=== PATIENT | female | born 1975 | race Caucasian/White ===

== ENCOUNTER → 2019-12-16 | Outpatient (CLI) | payer SELFPAY ==
[~2019-12-16] MED LIST: ALBU90OI INH; HYDACE5 PO; IBUP800 PO; LORA10; MULVITMINF; PENVK250 PO; PENVK500 PO; PROM25 PO; RXPENVK250 PO; SULTRIDS PO
[2019-12-17 18:07] LABS: HPV 16 Negative (Negative); HPV 18 Negative (Negative); HPV OTHER HR TYPES Positive (Negative)
== END ==
LOC: LAB SHORT 12:18 → LAB 12:18
PROVIDERS: Registered Nurse Community Health
DX: Z12.4 Encounter for screening for malignant neoplasm of cervix (principal)
CPT/HCPCS: 87624; 87625; G0123

== ENCOUNTER → 2019-12-23 | Outpatient (CLI) | payer SELFPAY | LOC: PLD 15:03 → LAB SHORT 15:03 | DX: N87.1 Moderate cervical dysplasia (principal) | CPT/HCPCS: 88305 ==

== ENCOUNTER 2020-04-03 06:15 | Day surgery (SDC) | payer OTHER ==
[~2020-04-03] VITALS: Ht 170.2 cm; Wt 54.9 kg
[~2020-04-03 06:15] MED LIST changes: +Aspirin325 MG PO; +Budeprion Xl300 MG PO; +MOBIC7.5 MG PO; +OLAN5 PO; +Ranitidine HCl150 M1 PO
[2020-04-03] MEDS ORDERED: ACET500 PO (06:56)
== END 2020-04-03 09:32 | disposition home or self-care (01) ==
LOC: ORSCSDS 06:15
PROVIDERS: Obstetrics & Gynecology
PROC: 0UBC7ZX Excision of Cervix, Via Natural or Artificial Opening, Diagnostic (ICD-10-PCS; principal; 2020-04-03 07:30)
DX: N87.9 Dysplasia of cervix uteri, unspecified (principal); F17.210 Nicotine dependence, cigarettes, uncomplicated
CPT/HCPCS: 88305; A9270; J0171; J0690; J1100; J1885; J2250; J2405; J2704; J3010; J7040; J7120

== ENCOUNTER 2020-04-20 05:02 | Emergency (ER) | payer SELFPAY ==
[~2020-04-20] VITALS: Ht 170.2 cm; Wt 54.4 kg
[~2020-04-20 05:02] MED LIST changes: +ACET500 PO
[2020-04-20] MEDS ORDERED: Permethrin60 GM TOP (08:03)
== END 2020-04-20 08:07 | disposition home or self-care (01) ==
LOC: ER 05:02
DX: B86 Scabies (principal); F17.200 Nicotine dependence, unspecified, uncomplicated
CPT/HCPCS: 99282